=== PATIENT | female | born 1975 ===

== ENCOUNTER 2017-06-09 07:29 | Day surgery (SDC) | payer OTHER ==
[~2017-06-09 07:29] MED LIST: BUPIVACAINE/EPI 0.5% 10 ML SOL INFIL ONE
[2017-06-09] MEDS ORDERED: LIDOCAINE HCL 1% MPF SOL ONE (07:31)
[2017-06-09] MEDS ORDERED: SUCCINYLCHOLINE CHLORIDE 20 MG/ML SOL IV ONE (07:40)
[2017-06-09] MEDS ORDERED: ROCURONIUM BROMIDE 10 MG/ML SOL IV ONE (07:40)
[2017-06-09] MEDS ORDERED: FENTANYL 100MCG/2ML SOL ONE ×2 (07:47→08:53)
[2017-06-09] MEDS ORDERED: PROPOFOL 10 MG/ML EMU IV ONE (07:48)
[2017-06-09] MEDS ORDERED: GLYCOPYRROLATE 0.2 MG/ML SOL ONE (08:56)
[2017-06-09] MEDS ORDERED: NEOSTIGMINE METHYLSULFATE 1 MG/ML SOL ONE (08:56)
[2017-06-09] MEDS ORDERED: LEVOFLOXACIN 25 MG/ML SOL IV ONE (08:57)
[2017-06-09] MEDS ORDERED: ALBUTEROL NEB SOL 2.5MG/3ML 1 VIAL SOL ONE (09:36)
[2017-06-09] MEDS ORDERED: ALBUTEROL NEB SOL 2.5MG/3ML 1 VIAL SOL NEB ONE (09:42)
[2017-06-09 10:29] VITALS: RESP 20; TEMP 97.9
[2017-06-09 10:38] VITALS: BP 116/61; PULSE 96; O2SAT 97
== END 2017-06-09 10:45 | disposition home or self-care (01) ==
LOC: SURG 07:29
PROVIDERS: ATTEND Surgery
DX: L98.8 Other specified disorders of the skin and subcutaneous tissue (principal)
CPT/HCPCS: 11403; 99001; J0330; J1956; J2001; J2704; J2710; J3010 ×2; 99070; J7603; J7643; A6402